=== PATIENT | male | born 1935 | race Caucasian/White ===

== ENCOUNTER 2020-03-12 13:06 | Emergency (ER) | payer MEDICARE, MEDICAID, SELFPAY ==
[~2020-03-12] VITALS: Ht 167.6 cm; Wt 78.9 kg
[2020-03-12 13:26] VITALS: BP_SYST 147
[2020-03-12 13:55] VITALS: BP_SYST 147
== END 2020-03-12 13:55 | disposition home or self-care (01) ==
LOC: SED 13:06
DX: U07.1 COVID-19 (principal); B34.9 Viral infection, unspecified; I25.2 Old myocardial infarction; M10.9 Gout, unspecified
CPT/HCPCS: 99283; C9803; U0003

== ENCOUNTER 2020-03-13 16:15 | Emergency (ER) | payer MEDICARE, MEDICAID, SELFPAY ==
[~2020-03-13] VITALS: Ht 167.6 cm; Wt 79.8 kg
[2020-03-13 16:29] VITALS: BP_SYST 143
== END 2020-03-13 20:12 | disposition left against medical advice (07) ==
LOC: SED 16:15
DX: R06.02 Shortness of breath (principal); Z53.21 Procedure and treatment not carried out due to patient leaving prior to being seen by health care provider